=== PATIENT | female | born 1955 | race Caucasian/White ===

== ENCOUNTER → 2021-12-12 | Outpatient (CLI) | payer OTHER ==
[~2021-12-12] MED LIST: ALBU8.5H INH; ATOR40TA75 PO; BREO1INH INH; BUPR150T12 PO; DILT1CAP5 PO; GABA600T4 PO; LEXA1TAB2 PO; LORA-753 PO; MONT10TA97 PO; XARE20TA PO
== END ==
LOC: M LABSMTC 10:07
PROVIDERS: ATTEND Anesthesiology
DX: Z01.818 Encounter for other preprocedural examination (principal); Z11.52 Encounter for screening for COVID-19

== ENCOUNTER 2021-12-17 12:23 | Day surgery (SDC) | payer MEDICARE, MEDICAID ==
[~2021-12-17] VITALS: Ht 157.5 cm; Wt 57.1 kg
[~2021-12-17 12:23] MED LIST changes: +LR 1,000 ML IV SCH
[2021-12-17] MEDS ORDERED: MIDAZOLAM INJ 2MG/2ML VIAL (J2250 PER 1MG) As Ordered ONE ×2 (14:00→14:22)
[2021-12-17] MEDS ORDERED: LIDOCAINE VISCOUS 2% SOLN 15ML UDC As Ordered ONE (14:01)
[2021-12-17] MEDS ORDERED: CETACAINE SPRAY 5GM As Ordered ONE (14:16)
[2021-12-17 15:02] VITALS: BP 144/96
== END 2021-12-17 14:50 | disposition home or self-care (01) ==
LOC: M OPP 12:23
PROVIDERS: ATTEND Internal Medicine Cardiovascular Disease
DX: I34.1 Nonrheumatic mitral (valve) prolapse (principal); I51.7 Cardiomegaly; I42.0 Dilated cardiomyopathy; I35.0 Nonrheumatic aortic (valve) stenosis; I70.0 Atherosclerosis of aorta; I31.3 Pericardial effusion (noninflammatory)
CPT/HCPCS: 36415; 93312; 93320; 93325; J2250